=== PATIENT | male | born 1950 | race Hispanic/Latino ===

== ENCOUNTER 2017-07-10 12:36 | Emergency (ER) | payer MEDICARE ==
[2017-07-10 13:23] LABS: BASOPHILS % (AUTO) 0.8 % (0.0-5.0); EOSINOPHILS % (AUTO) 1.6 % (0.0-8.0); HEMATOCRIT 36.4 % (42-54); LYMPHOCYTES % (AUTO) 22.6 % (21.0-51.0); MEAN CORPUSCULAR HEMOGLOBIN 29.3 pg (27.0-33.0); MEAN CORPUSCULAR HGB CONC 34.3 g/dL (32.0-36.0); MEAN CORPUSCULAR VOLUME 85.3 fL (79-99); MONOCYTES % (AUTO) 8.3 % (3.0-13.0); NEUTROPHILS % (AUTO) 66.7 % (40.0-77.0); PLATELET COUNT (AUTO) 156 K/uL (130-400); RED BLOOD CELL COUNT(AUTO) 4.26 MIL/uL (4.50-6.20); RED CELL DISTRIBUTION WIDTH 15.7 % (11.0-15.5); WHITE BLOOD COUNT (AUTO) 7.4 K/uL (4.8-10.8)
[2017-07-10 13:23] LABS: APPEARANCE,URINE CLEAR (CLEAR); BILIRUBIN,URINE NEGATIVE (NEGATIVE); COLOR,URINE YELLOW (YELLOW); GLUCOSE, URINE (UA) NEGATIVE (NEGATIVE); KETONES,URINE NEGATIVE (NEGATIVE); LEUKOCYTE ESTERASE ,URINE NEGATIVE (NEGATIVE); NITRATE,URINE NEGATIVE (NEGATIVE); OCCULT BLOOD,URINE NEGATIVE (NEGATIVE); PH,URINE 5.5 (5.0-8.0); PROTEIN,URINE NEGATIVE (NEGATIVE); UROBILINOGEN,URINE 0.2 mg/dL (0.2-1.0)
[2017-07-10 13:30] LABS: CREATININE 0.9 mg/dL (0.5-1.5); POTASSIUM 3.9 mmol/L (3.5-5.1)
[2017-07-10 13:35] LABS: ALBUMIN 3.5 g/dL (3.5-5.0); BILIRUBIN,TOTAL 0.5 mg/dL (0.2-1.0); TOTAL PROTEIN, SERUM 8.7 g/dL (6.0-8.3)
== END 2017-07-10 14:19 | disposition home or self-care (01) ==
LOC: EDH 12:36
DX: R42 Dizziness and giddiness (principal); M54.2 Cervicalgia; I10 Essential (primary) hypertension; E78.5 Hyperlipidemia, unspecified; Z98.890 Other specified postprocedural states; Z79.899 Other long term (current) drug therapy
CPT/HCPCS: 36415; 80053; 81003; 85025; 93005

== ENCOUNTER 2018-09-06 14:02 | Emergency (ER) | payer OTHER, MEDICARE ==
[2018-09-06] MEDS ORDERED: KETOROLAC TROMETHAMINE 15MG/ML ONE (14:53)
[2018-09-06] MEDS ORDERED: DEXAMETHASONE SOD PHOSPHATE 10MG/ML 1ML VIAL ONE (14:53)
== END 2018-09-06 15:20 | disposition home or self-care (01) ==
LOC: EDH 14:02
DX: M54.12 Radiculopathy, cervical region (principal); R20.2 Paresthesia of skin; E78.5 Hyperlipidemia, unspecified; I10 Essential (primary) hypertension; Z90.49 Acquired absence of other specified parts of digestive tract; Z87.891 Personal history of nicotine dependence; Z79.899 Other long term (current) drug therapy
CPT/HCPCS: 72040; 96374; 96375; 99284; J1100; J1885

== ENCOUNTER 2021-11-05 09:12 | Emergency (ER) | payer OTHER, MEDICARE ==
[~2021-11-05] VITALS: Ht 170.2 cm; Wt 138.3 kg
[2021-11-05] MEDS ORDERED: MECLIZINE HCL 12.5 MG TABLET PO ONE (10:00)
[2021-11-05 10:09] LABS: BASOPHILS % (AUTO) 0.4 % (0.0-5.0); EOSINOPHILS % (AUTO) 1.7 % (0.0-8.0); HEMATOCRIT 35.5 % (42-54); LYMPHOCYTES % (AUTO) 20.8 % (21.0-51.0); MEAN CORPUSCULAR HEMOGLOBIN 27.6 pg (27.0-33.0); MEAN CORPUSCULAR HGB CONC 31.5 g/dL (32.0-36.0); MEAN CORPUSCULAR VOLUME 87.4 fL (79-99); MONOCYTES % (AUTO) 5.9 % (3.0-13.0); NEUTROPHILS % (AUTO) 70.8 % (40.0-77.0); PLATELET COUNT (AUTO) 151 K/uL (130-400); RED BLOOD CELL COUNT(AUTO) 4.06 MIL/uL (4.50-6.20); RED CELL DISTRIBUTION WIDTH 14.9 % (11.0-15.5); WHITE BLOOD COUNT (AUTO) 6.9 K/uL (4.8-10.8)
[2021-11-05 10:29] LABS: ALBUMIN 3.1 g/dL (3.5-5.0); BILIRUBIN,TOTAL 0.3 mg/dL (0.2-1.0); CREATININE 0.9 mg/dL (0.5-1.5); POTASSIUM 4.1 mmol/L (3.5-5.1)
[2021-11-05 11:33] LABS: APPEARANCE,URINE CLEAR (CLEAR); BILIRUBIN,URINE NEGATIVE (NEGATIVE); COLOR,URINE YELLOW (YELLOW); GLUCOSE, URINE (UA) NEGATIVE (NEGATIVE); KETONES,URINE NEGATIVE (NEGATIVE); LEUKOCYTE ESTERASE ,URINE NEGATIVE (NEGATIVE); NITRATE,URINE NEGATIVE (NEGATIVE); OCCULT BLOOD,URINE NEGATIVE (NEGATIVE); PROTEIN,URINE NEGATIVE (NEGATIVE); UROBILINOGEN,URINE 0.2 mg/dL (0.2-1.0)
[2021-11-05 11:55] LABS: BACTERIA,URINE Rare /HPF (None Seen); RBC,URINE None Seen /HPF (0-1); WBC,URINE None Seen /HPF (0-1)
[2021-11-05] MEDS ORDERED: 0.9%NACL 1000ML 1,000 ML IV ONE (12:00)
[2021-11-05 12:25] VITALS: BP 156/57
== END 2021-11-05 12:54 | disposition home or self-care (01) ==
LOC: EDH 09:12
DX: A08.4 Viral intestinal infection, unspecified (principal); E11.9 Type 2 diabetes mellitus without complications; E78.00 Pure hypercholesterolemia, unspecified; I10 Essential (primary) hypertension; Z90.49 Acquired absence of other specified parts of digestive tract; Z98.890 Other specified postprocedural states
CPT/HCPCS: 36415; 80053; 81001; 85025; 93005; 99284; J7030

== ENCOUNTER 2021-12-28 21:51 | Inpatient (IN) | payer OTHER, MEDICARE ==
[~2021-12-28] VITALS: Ht 180.3 cm; Wt 139.1 kg
[2021-12-28 22:30] LABS: BASOPHILS % (AUTO) 0.3 % (0.0-5.0); EOSINOPHILS % (AUTO) 0.5 % (0.0-8.0); HEMATOCRIT 36.9 % (42-54); LYMPHOCYTES % (AUTO) 5.7 % (21.0-51.0); MEAN CORPUSCULAR HEMOGLOBIN 27.8 pg (27.0-33.0); MEAN CORPUSCULAR VOLUME 86.8 fL (79-99); PLATELET COUNT (AUTO) 157 K/uL (130-400); RED BLOOD CELL COUNT(AUTO) 4.25 MIL/uL (4.50-6.20); RED CELL DISTRIBUTION WIDTH 14.9 % (11.0-15.5); WHITE BLOOD COUNT (AUTO) 12.3 K/uL (4.8-10.8)
[2021-12-28] MEDS ORDERED: IBUPROFEN 800 MG TAB PO ONE (22:30)
[2021-12-28] MEDS ORDERED: ACETAMINOPHEN 500 MG TABLET PO ONE (22:30)
[2021-12-28 22:41] LABS: INR 1.03 (0.85-1.15); PROTHROMBIN TIME 11.2 SEC (9.6-11.6)
[2021-12-28 22:43] LABS: PARTIAL THROMBOPLASTIN TIME 21.4 SEC (26.3-35.5)
[2021-12-28 22:45] LABS: POTASSIUM 4.1 mmol/L (3.5-5.1)
[2021-12-28 22:50] LABS: ALBUMIN 3.5 g/dL (3.5-5.0); TOTAL PROTEIN, SERUM 8.1 g/dL (6.0-8.3)
[2021-12-28 23:19] LABS: APPEARANCE,URINE CLEAR (CLEAR); BILIRUBIN,URINE NEGATIVE (NEGATIVE); COLOR,URINE YELLOW (YELLOW); GLUCOSE, URINE (UA) NEGATIVE (NEGATIVE); KETONES,URINE NEGATIVE (NEGATIVE); LEUKOCYTE ESTERASE ,URINE NEGATIVE (NEGATIVE); NITRATE,URINE NEGATIVE (NEGATIVE); OCCULT BLOOD,URINE TRACE-INTACT (NEGATIVE); PROTEIN,URINE NEGATIVE (NEGATIVE); UROBILINOGEN,URINE 0.2 mg/dL (0.2-1.0)
[2021-12-28 23:32] LABS: BACTERIA,URINE None Seen /HPF (None Seen); RBC,URINE 0-1 /HPF (0-1); SQUAMOUS EPITHELIAL CELL,UR Few /HPF (0-2); WBC,URINE 0-1 /HPF (0-1)
[2021-12-29] MEDS ORDERED: CEFTRIAXONE 1G VIAL IVP ONE (00:30)
[2021-12-29] MEDS ORDERED: 0.9% NACL 500ML IV.SOLN 500 ML IV ONE (00:30)
[2021-12-29] MEDS ORDERED: AZITHROMYCIN 250 MG TABLET PO ONE (00:30)
[2021-12-29] MEDS ORDERED: CEFTRIAXONE 1G VIAL ONE (00:31)
[2021-12-29] MEDS ORDERED: IOHEXOL 350 MG/ML 100ML INFUS..BTL IV ONE (00:46)
[2021-12-29] MEDS ORDERED: ZOSYN 3.375GM +NS 50ML IV SCH ×2 (02:00→13:00)
[2021-12-29] MEDS ORDERED: VANCOMYCIN 1G/250ML KIT 250 ML IV ONE (02:00)
[2021-12-29] MEDS ORDERED: VANCOMYCIN 1G VIAL IVPB SCH (02:00)
[2021-12-29] MEDS ORDERED: ONDANSETRON 4MG INJ IVP PRN (02:00)
[2021-12-29] MEDS ORDERED: 0.9% NACL 250ML IV SCH (02:00)
[2021-12-29] MEDS ORDERED: ACETAMINOPHEN 325 MG TAB PO PRN (02:00)
[2021-12-29] MEDS: 0.9%NACL 1000ML 1,000 ML IV SCH ×2 (02:33→12:02)
[2021-12-29] MEDS: IBUPROFEN 600 MG TABLET PO SCH ×4 (02:39→20:34)
[2021-12-29] MEDS ORDERED: 0.9% NACL 500ML IV.SOLN 500 ML IV SCH (03:30)
[2021-12-29] MEDS ORDERED: GUAIFENESIN-DM 200/20 MG 10 ML PO PRN (05:30)
[2021-12-29] MEDS ORDERED: DEXTROSE 50%-WATER 50 ML DISP.SYRIN IV PRN (05:30)
[2021-12-29] MEDS ORDERED: NITROGLYCERIN 0.4 MG SL TAB SL PRN (05:30)
[2021-12-29] MEDS ORDERED: GLUCAGON 1MG KIT 1 MG ML IM PRN (05:30)
[2021-12-29] MEDS ORDERED: DIPHENHYDRAMINE HCL 25 MG CAPSULE PO PRN (05:30)
[2021-12-29] MEDS ORDERED: LACTULOSE 20 GM/30 ML UDCUP PO PRN (05:30)
[2021-12-29] MEDS ORDERED: MAG/ALUM/SIMETH 30 ML UDCUP PO PRN (05:30)
[2021-12-29 06:56] LABS: HEMOGLOBIN A1C 6.2 % (4.0-6.0)
[2021-12-29] MEDS: INSULIN HUMULIN R 100 UNIT/ML 3ML SQ SCH ×4 (07:30→21:00)
[2021-12-29 08:00] VITALS: BP 124/68
[2021-12-29] MEDS ORDERED: ENOXAPARIN SODIUM 40 MG/0.4 ML SYRINGE SQ SCH ×2 (09:00→21:00)
[2021-12-29] MEDS: FAMOTIDINE 20MG VIAL IV SCH ×2 (09:04→20:34)
[2021-12-29] MEDS ORDERED: SODIUM CHLORIDE 7% INHALATION 4 ML VIAL.NEB IH ONE ×3 (10:18→19:01)
[2021-12-29 12:05] VITALS: BP 114/53
[2021-12-29] MEDS ORDERED: SODIUM CHLORIDE 3% FOR INHALATION 4 ML/AMP VIAL.NEB IH ONE (13:46)
[2021-12-29 16:31] VITALS: BP 135/57
[2021-12-29] MEDS ORDERED: APIX5TAB PO (17:05)
[2021-12-29] MEDS ORDERED: ACET-2893 PO (17:05)
[2021-12-29] MEDS ORDERED: LOSA50TA64 PO (17:05)
[2021-12-29] MEDS ORDERED: ROSU20TA31 PO (17:05)
[2021-12-29] MEDS ORDERED: MULT-1259 PO (17:05)
[2021-12-29 19:31] VITALS: BP 97/49
[2021-12-29] MEDS: VANCOMYCIN 1.5 GM/250 ML BAG 250 ML IV SCH (20:34)
[2021-12-30] VITALS (7 sets, daily range): BP systolic 103–177; BP diastolic 43–59
[2021-12-30] MEDS: IBUPROFEN 600 MG TABLET PO SCH ×4 (02:00→22:41)
[2021-12-30] MEDS: 0.9%NACL 1000ML 1,000 ML IV SCH (02:58)
[2021-12-30 03:32] LABS: BASOPHILS % (AUTO) 0.4 % (0.0-5.0); EOSINOPHILS % (AUTO) 0.5 % (0.0-8.0); HEMATOCRIT 31.6 % (42-54); LYMPHOCYTES % (AUTO) 6.3 % (21.0-51.0); MEAN CORPUSCULAR HEMOGLOBIN 27.3 pg (27.0-33.0); MONOCYTES % (AUTO) 2.5 % (3.0-13.0); NEUTROPHILS % (AUTO) 89.5 % (40.0-77.0); PLATELET COUNT (AUTO) 137 K/uL (130-400); RED BLOOD CELL COUNT(AUTO) 3.59 MIL/uL (4.50-6.20); RED CELL DISTRIBUTION WIDTH 15.7 % (11.0-15.5); WHITE BLOOD COUNT (AUTO) 17.1 K/uL (4.8-10.8)
[2021-12-30 03:48] LABS: ALBUMIN 2.4 g/dL (3.5-5.0); CREATININE 1.1 mg/dL (0.5-1.5); MAGNESIUM 1.6 mg/dL (1.80-2.40); POTASSIUM 3.6 mmol/L (3.5-5.1); TOTAL PROTEIN, SERUM 6.6 g/dL (6.0-8.3)
[2021-12-30 04:21] LABS: CRP QUANTITATIVE 223.1 mg/L (0.00-9.0)
[2021-12-30] MEDS: INSULIN HUMULIN R 100 UNIT/ML 3ML SQ SCH ×4 (07:30→21:00)
[2021-12-30] MEDS ORDERED: MAGNESIUM 2GM PREMIX 50ML 50 ML IV SCH (08:00)
[2021-12-30] MEDS: FAMOTIDINE 20MG VIAL IV SCH ×2 (09:39→22:36)
[2021-12-30] MEDS: LOSARTAN 50 MG TABLET PO SCH (09:39)
[2021-12-30] MEDS: APIXABAN 5 MG TABLET PO SCH (09:40)
[2021-12-30] MEDS: MULTIVITAMINS/MINERALS/IRO TAB PO SCH (12:41)
[2021-12-30] MEDS: VANCOMYCIN 1.5 GM/250 ML BAG 250 ML IV SCH ×2 (12:41→22:36)
[2021-12-30] MEDS: ATORVASTATIN 40 MG TABLET PO SCH (22:41)
[2021-12-31] MEDS: IBUPROFEN 600 MG TABLET PO SCH ×4 (02:00→20:04)
[2021-12-31 04:27] VITALS: BP 107/46
[2021-12-31] MEDS: INSULIN HUMULIN R 100 UNIT/ML 3ML SQ SCH ×4 (07:30→20:23)
[2021-12-31 08:00] VITALS: BP 153/70
[2021-12-31] MEDS: VANCOMYCIN 1.5 GM/250 ML BAG 250 ML IV SCH (09:00)
[2021-12-31] MEDS: APIXABAN 5 MG TABLET PO SCH (09:08)
[2021-12-31] MEDS: LOSARTAN 50 MG TABLET PO SCH (09:08)
[2021-12-31] MEDS: FAMOTIDINE 20MG VIAL IV SCH ×2 (09:08→20:04)
[2021-12-31] MEDS: MULTIVITAMINS/MINERALS/IRO TAB PO SCH (09:08)
[2021-12-31 12:00] VITALS: BP 135/52
[2021-12-31 16:00] VITALS: BP 132/55
[2021-12-31] MEDS: CEFTRIAXONE 2GM VIAL IVP SCH (16:35)
[2021-12-31 17:54] LABS: INR 0.99 (0.85-1.15); PROTHROMBIN TIME 10.8 SEC (9.6-11.6)
[2021-12-31 20:00] VITALS: BP 156/72
[2021-12-31] MEDS: ATORVASTATIN 40 MG TABLET PO SCH (20:04)
[2022-01-01] VITALS: BP 130/43
[2022-01-01] MEDS: IBUPROFEN 600 MG TABLET PO SCH ×3 (01:32→13:48)
[2022-01-01 04:00] VITALS: BP 133/61
[2022-01-01 04:46] LABS: BASOPHILS % (AUTO) 0.5 % (0.0-5.0); EOSINOPHILS % (AUTO) 1.6 % (0.0-8.0); HEMATOCRIT 30.4 % (42-54); LYMPHOCYTES % (AUTO) 19.5 % (21.0-51.0); MEAN CORPUSCULAR HEMOGLOBIN 27.6 pg (27.0-33.0); MEAN CORPUSCULAR HGB CONC 31.6 g/dL (32.0-36.0); MEAN CORPUSCULAR VOLUME 87.4 fL (79-99); NEUTROPHILS % (AUTO) 72.6 % (40.0-77.0); PLATELET COUNT (AUTO) 139 K/uL (130-400); RED BLOOD CELL COUNT(AUTO) 3.48 MIL/uL (4.50-6.20); RED CELL DISTRIBUTION WIDTH 15.8 % (11.0-15.5); WHITE BLOOD COUNT (AUTO) 7.6 K/uL (4.8-10.8)
[2022-01-01 05:10] LABS: ALBUMIN 2.3 g/dL (3.5-5.0); CREATININE 0.9 mg/dL (0.5-1.5); POTASSIUM 3.9 mmol/L (3.5-5.1); TOTAL PROTEIN, SERUM 6.8 g/dL (6.0-8.3)
[2022-01-01] MEDS: INSULIN HUMULIN R 100 UNIT/ML 3ML SQ SCH ×2 (06:12→11:28)
[2022-01-01 07:10] VITALS: BP 150/44
[2022-01-01] MEDS: MULTIVITAMINS/MINERALS/IRO TAB PO SCH (09:07)
[2022-01-01] MEDS: LOSARTAN 50 MG TABLET PO SCH (09:07)
[2022-01-01] MEDS: FAMOTIDINE 20MG VIAL IV SCH (09:07)
[2022-01-01] MEDS: APIXABAN 5 MG TABLET PO SCH (09:08)
[2022-01-01 11:10] VITALS: BP 160/55
[2022-01-01] MEDS: CEFTRIAXONE 2GM VIAL IVP SCH (13:47)
== END 2022-01-01 14:15 | disposition home or self-care (01) | DRG 872 ==
LOC: EDH 21:51 → EDHIP 12-29 01:56 → 2DH 12-29 08:02 → 4BH 12-30 06:07 → 2DH 12-30 16:36 → 4BH 12-30 16:59
PROVIDERS: ADMIT Hospitalist; ATTEND Hospitalist
DX: A40.1 Sepsis due to streptococcus, group B (principal); Z68.41 Body mass index [BMI] 40.0-44.9, adult; L03.115 Cellulitis of right lower limb; E11.9 Type 2 diabetes mellitus without complications; Z20.822 Contact with and (suspected) exposure to COVID-19; E66.01 Morbid (severe) obesity due to excess calories; I95.9 Hypotension, unspecified; E66.9 Obesity, unspecified; I10 Essential (primary) hypertension; E78.5 Hyperlipidemia, unspecified; Z83.3 Family history of diabetes mellitus; Z86.718 Personal history of other venous thrombosis and embolism
CPT/HCPCS: 36415; 36600; 71045; 71270; 80053; 80202; 81001; 82140; 82550; 82948; 83036; 83605; 83735; 83880; 84145; 84484; 85025; 85610; 85730; 86000; 86140; 87040; 87077; 87088; 87186; 87635; 87804; 93005; 93306; 93970; 94640; 97039; C1894; C9803; G0378; J0696; J1650; J1815; J2543; J3370; J3490; J7030; Q9967